=== PATIENT | male | born 1945 | race Caucasian/White ===

== ENCOUNTER 2018-04-21 18:30 | Observation (INO) ==
[2018-04-21] MEDS ORDERED: ASPIRIN 81 MG TAB.CHEW PO ONE (18:58)
[2018-04-21] MEDS ORDERED: NITROGLYCERIN 0.4 MG/TAB BTL SL ONE ×3 (19:07→22:16)
--- NOTE | 2018-04-21 19:07 | ERNOTE ---
Chest Pain/Cardiac HPI Chief Complaint: Chest Pain Time Seen by Provider: 04/21/18 18:46 Source: patient Exam Limitations: no limitations Immunizations: IMMUNIZATION HX Immunizations Up to Date Yes History of Influenza Vaccine No Hx Pneumococcal Vaccination No Allergies/Adverse Reactions: Allergies No Known Allergies Allergy (Unverified 04/21/18 18:56) Home Medications: HOME MEDICATIONS NK 04/21/18 [Last Taken Unknown] Narrative: Patient has had intermittent chest pain for at least three weeks. The pain has been intermittent at first but has been constant since he woke up this morning. He has not clearly aggravating or alleviating factors, pain radiates to both shoulders, rates it as a 8/10. He saw his PCP today who advised him to go to the ER. His prior history is positive for a bicuspid aortic valve, he takes only vitamin, no prescription medication. Timing: constant Severity/Quality: severe, pressure Location: central Chest Pain Radiation: shoulders Activities at Onset: none Modifying Factors - Improves: Present: nothing Modifying Factors - Worsens: Absent: exercise, position Nitro Today/Relief: no nitro taken today Associated Symptoms: Present: cough, shortness of breath. Absent: fever/chills, palpitations, nausea, vomiting Prior Chest Pain/Cardiac Workup: Denies: prior chest pain, heart attack Prior Treatment: Reports: recently seen. Denies: currently on antibiotics Review of Systems - Review of Systems Constitutional: Present: fatigue, malaise. Absent: recent illness, fever, chills ENT: Absent: nose congestion Respiratory: Present: shortness of breath, cough - slight Cardiology: Present: chest pain. Absent: palpitations Gastrointestinal/Abdominal: Absent: nausea, vomiting, abdominal pain Genitourinary: Present: no symptoms reported Musculoskeletal: Absent: back pain Neurological: Present: weakness - generalized Medical History (Last Reviewed 04/21/18 @ 19:41 by Lillian Espitia MD) Hx of bicuspid aortic valve Surgical History: Surgical History (Last Reviewed 04/21/18 @ 19:41 by Lillian Espitia MD) History of appendectomy History of arthroscopy of left knee History of back surgery History of shoulder surgery History of tonsillectomy and adenoidectomy Social History: Preferred Language Indonesian Do you have any yazidism or Yes: [place] cultural preference? Smoking Status Never smoker Alcohol Use none Drug Use none No Social History Section defined Physical Exam - Physical Exam General Appearance: Present: wd/wn, alert, no apparent distress Respiratory: Present: no respiratory distress, normal breath sounds, lungs clear, chest tenderness - parasternal Cardiovascular/Chest: Present: regular rate, rhythm, no murmur Gastrointestinal/Abdominal: Present: normal bowel sounds, nondistended, soft, tenderness Extremity Exam: Present: no edema Neurological Exam: Present: alert, oriented, normal mood/affect Skin Exam: Present: normal color, warm/dry Progress - Results and Orders Patient's Lab Results:: I have reviewed the patient's lab results. - Vital Signs Patient's Vital Signs:: I have reviewed the patient's vital signs. Vital Signs: Vital Signs 04/21/18 18:51 Temperature 35.5 C L Pulse Rate 85 Respiratory Rate 15 Blood Pressure 181/74 H O2 Sat by Pulse Oximetry 95 - EKG EKG #1 EKG: NSR, RBBB EKG read: Interp. by me - X-Ray X-Ray #1 X-Ray: chest - no acute changes Interpretation: Interp. by me - Progress/Reassessment Chief Complaint: Chest Pain Progress Note-Subjective: 04/21/18 19:50 pain was better after nitro 08/0804/21/18 20:10 discussed test results with patient and family, offered admission, patient agreed pain better 04/21/18 20:18 discussed with kirk Graff to admit for observation for chest pain Departure Clinical Impression: Chest pain Qualifiers: Chest pain type: unspecified Qualified Code(s): R07.9 - Chest pain, unspecified - Departure Disposition: Still a patient Condition: Stable
[2018-04-21 19:38] LABS: Hematocrit 49.8 % (42.0-52.0); Hemoglobin 16.8 gm/dL (13.5-18.0); Mean Cell Volume 88.6 fl (78-100); Mean Corpuscular Hemoglobin 29.9 pg (27-31); Mean Corpuscular Hgb Conc 33.7 g/dl (32-36); Mean Platelet Volume 10.9 fl (8-11.3); Neutrophil # 3.8 K/mm3 (1.3-6.0); Neutrophil % 56.8 % (42-75.0); Platelet Count 169 K/mm3 (150-450); Red Blood Count 5.62 M/mm3 (4.7-6.0); White Blood Count 6.7 K/mm3 (4.0-10.5)
[2018-04-21 19:45] LABS: INR 1.1 INR (0.90-1.10); Partial Thrombolplastin Time 28.5 Seconds (24-32)
[2018-04-21 19:52] LABS: ALT 24 U/L (19-67); AST 34 U/L (0-48); Albumin * 3.9 gm/dl (3.4-5.0); Alkaline Phosphatase * 82 U/L (50-170); Anion Gap 13.3 mmol/L (6.8-13.8); BUN/Creatinine Ratio 18.5 (9.0-21.6); Bilirubin, Total 0.7 mg/dL (0.0-1.1); Blood Urea Nitrogen 17 mg/dL (6-23); Ca. Corrected For Albumin 8.8 mg/dL (8.4-10.2); Carbon Dioxide 26.8 mmol/L (24-32.6); Chloride 104 mmol/L (97-106); Glucose * 99 mg/dL (70-110); Potassium 4.1 mmol/L (3.4-4.6); Sodium 140 mmol/L (132-142); Total Protein 7.1 gm/dL (6.2-8.2); Troponin I Less than 0.017 ng/mL (0.00-0.10)
[2018-04-21 20:12] LABS: Urine Bilirubin Negative (NEGATIVE); Urine Blood Negative /ul (NEGATIVE); Urine Ketone Negative (NEGATIVE); Urine Nitrite Negative (NEGATIVE); Urine Protein Negative (NEGATIVE); Urine Urobilinogen Normal (NORMAL); Urine pH 5.5 pH (5.0-7.0)
[2018-04-21 20:19] LABS: Urine Appearance Clear (CLEAR); Urine Color Yellow
[2018-04-21 20:20] LABS: Urine Bacteria TRACE; Urine RBC None Seen /hpf (0-5); Urine WBC None Seen /hpf (0-5)
[2018-04-21] MEDS ORDERED: ROSUVASTATIN CALCIUM 20 MG TABLET PO STA (20:30)
[2018-04-21] MEDS ORDERED: NITROGLYCERIN 0.4 MG/TAB BTL SL PRN (22:13)
--- NOTE | 2018-04-22 01:29 | HP ---
Chief Complaint - Chief Complaint Date of Service: 04/22/18 Time of Service: 00:53 Chief Complaint: Chest pain History of Present Illness: 72-year-old male with no real pertinent past history presented to the ER today due to 3-4 weeks of ongoing chest pain/pressure that seem to be made worse with activity. He stated the pain radiated for the center of his chest into both arm pits and sometimes down both arms. He endorsed fatigue but denies shortness of breath, dizziness, nausea vomiting. He has endorsed some swelling in his legs which he says started about the same time he started having chest pain. His first troponin in the ER was negative, EKG showed right bundle branch block and some PVCs but otherwise no ischemic or elevated changes. He was given a dose of aspirin and Crestor in the ER. Since being on the floor he has had one episode of chest pain which improved with nitro but repeat EKG showed no changes compared to his first EKG. His vital signs been stable and he has been afebrile. He was placed in observation for repeat cardiac enzyme testing later this morning Medical History (Last Reviewed 04/21/18 @ 19:41 by Lillian Espitia MD) Hx of bicuspid aortic valve Surgical History: Surgical History (Last Reviewed 04/21/18 @ 19:41 by Lillian Espitia MD) History of appendectomy History of arthroscopy of left knee History of back surgery History of shoulder surgery History of tonsillectomy and adenoidectomy Social History: Patient Lives/Resources Home Utilized Occupation retired Preferred Language Beninese Do you have any methodist or Yes: L[employer] cultural preference? Smoking Status Never smoker Have you smoked in the past 12 No months Do you dip or chew tobacco No Alcohol Use none Drug Use none No Social History Section defined Review Of Systems (GEN) - Review of Systems Generalized/Overall Review: Present: Weakness. Absent: Chills, Fever EENTM: Absent: Blurred Vision, Double Vision Respiratory: Absent: Cough, Shortness of Breath Cardiac: Present: Chest Pain, Edema. Absent: Palpitations, Syncope Abdominal: Absent: Nausea, Vomiting, Abdominal Pain Genitourinary: Present: No Symptoms Reported Musculoskeletal: Present: Joint Pain - Right shoulder, Back Pain Neurological: Absent: Headache, Anxiety, Depressed Immunizations: IMMUNIZATION HX Immunizations Up to Date Yes History of Influenza Vaccine No Hx Pneumococcal Vaccination No Allergies/Adverse Reactions: Allergies Allergy/AdvReac Type Severity Reaction Status Date / Time No Known Allergies Allergy Unverified 04/21/18 18:56 Home Medications: HOME MEDICATIONS Ascorbic Acid/Multivit-Min [Emergen-C 1,000 mg Packet] 1,000 mg PO DAILY [Last Taken Unknown] Cefdinir 600 mg PO DAILY 04/21/18 [Last Taken Unknown] Gluc/MSM/Coll2/Hyal/Antiarth#3 [Arthri-Flex Tablet] 2 ea PO QID 04/21/18 [Last Taken Unknown] Multivitamin [Multivitamins] 1 ea PO DAILY 04/21/18 [Last Taken Unknown] Nitroglycerin [Nitrostat] 0.4 mg SUBLINGUAL Q5MIN PRN 04/21/18 [Last Taken Unknown] Exam - Exam Vital Signs: Vital Signs - Last Taken Temp 36.5 C 04/21/18 23:53 Pulse 55 L 04/21/18 23:53 Resp 20 04/21/18 23:53 BP 105/55 04/21/18 23:53 Pulse Ox 94 04/21/18 23:53 Constitutional: Present: Alert, Oriented x3, Cooperative Eye Exam: bilateral eye: normal inspection, EOMI Respiratory: Present: lungs clear, normal breath sounds, no respiratory distress, other - Chest wall pain with palpation Cardiovascular/Chest: Present: normal peripheral pulses, regular rate, rhythm, no edema - Trace edema bilaterally midshin. Absent: no chest tenderness, diastolic murmur, systolic murmur Abdomen: Present: Normal bowel sounds, soft /Rectal: Present: Exam deferred Skin Exam: Present: normal color, warm/dry Appearance: Present: appropriate appearance, appropriate insight, neat Eye contact: Present: cooperative, good eye contact Thoughts: Present: normal thought pattern, normal mood /affect Diagnostic Studies: Laboratory Results WBC 6.7 K/mm3 (4.0-10.5) 04/21/18 19:15 RBC 5.62 M/mm3 (4.7-6.0) 04/21/18 19:15 Hgb 16.8 gm/dL (13.5-18.0) 04/21/18 19:15 Hct 49.8 % (42.0-52.0) 04/21/18 19:15 MCV 88.6 fl (78-100) 04/21/18 19:15 MCH 29.9 pg (27-31) 04/21/18 19:15 MCHC 33.7 g/dl (32-36) 04/21/18 19:15 RDW 13.0 % (11.5-14.0) 04/21/18 19:15 Plt Count 169 K/mm3 (150-450) 04/21/18 19:15 MPV 10.9 fl (8-11.3) 04/21/18 19:15 Immature Gran % (Auto) 0.30 % (0.001-0.429) 04/21/18 19:15 Immature Gran # (Auto) 0.02 K/mm3 (0.000-0.0310) 04/21/18 19:15 Neutrophils % 56.8 % (42-75.0) 04/21/18 19:15 Lymphocytes % 32.2 % (20-51) 04/21/18 19:15 Monocytes % 8.5 % (0.0-9) 04/21/18 19:15 Eosinophils % 1.9 % (0.0-3.0) 04/21/18 19:15 Basophils % 0.3 % (0.0-1.0) 04/21/18 19:15 Nucleated RBC % 0.0 k/mm3 (0-1) 04/21/18 19:15 Neutrophils # 3.8 K/mm3 (1.3-6.0) 04/21/18 19:15 Lymphocytes # 2.15 k/mm3 (1.5-3.5) 04/21/18 19:15 Monocytes # 0.6 k/mm3 (0.0-1.0) 04/21/18 19:15 Eosinophils # 0.1 k/mm3 (0.0-0.7) 04/21/18 19:15 Absolute Basophils 0.0 k/mm3 (0.0-0.1) 04/21/18 19:15 PT 11.0 Seconds (9.0-11.0) 04/21/18 19:15 INR (Anticoag Therapy) 1.10 INR (0.90-1.10) 04/21/18 19:15 PTT ([place]) 28.5 Seconds (24-32) 04/21/18 19:15 Sodium 140 mmol/L (132-142) 04/21/18 19:15 Plasma Sodium 140 mmol/L (130-142) 04/21/18 19:15 Potassium 4.1 mmol/L (3.4-4.6) 04/21/18 19:15 Chloride 104 mmol/L (97-106) 04/21/18 19:15 Carbon Dioxide 26.8 mmol/L (24-32.6) 04/21/18 19:15 Anion Gap 13.3 mmol/L (6.8-13.8) 04/21/18 19:15 BUN 17 mg/dL (6-23) 04/21/18 19:15 Creatinine 0.92 mg/dL (0.4-1.4) 04/21/18 19:15 Est GFR (Non-Af Amer) 86 mL/min (60-130) 04/21/18 19:15 BUN/Creatinine Ratio 18.5 (9.0-21.6) 04/21/18 19:15 Random Glucose 99 mg/dL (70-110) 04/21/18 19:15 Calcium 9.0 mg/dL (7.9-10.9) 04/21/18 19:15 Calcium Adj for Albumin 8.8 mg/dL (8.4-10.2) 04/21/18 19:15 Total Bilirubin 0.7 mg/dL (0.0-1.1) 04/21/18 19:15 AST 34 U/L (0-48) 04/21/18 19:15 ALT 24 U/L (19-67) 04/21/18 19:15 Alkaline Phosphatase 82 U/L (50-170) 04/21/18 19:15 Troponin I Less than 0.017 ng/mL (0.00-0.10) 04/21/18 19:15 Total Protein 7.1 gm/dL (6.2-8.2) 04/21/18 19:15 Albumin 3.9 gm/dl (3.4-5.0) 04/21/18 19:15 Urine Color Yellow 04/21/18 19:45 Urine Appearance Clear (CLEAR) 04/21/18 19:45 Urine pH 5.5 pH (5.0-7.0) 04/21/18 19:45 Ur Specific [place] 1.020 SP.GR. (1.005-1.030) 04/21/18 19:45 Urine Protein Negative mg/dL (NEGATIVE) 04/21/18 19:45 Urine Glucose (UA) Negative mg/dL (NEGATIVE) 04/21/18 19:45 Urine Ketones Negative mg/dL (NEGATIVE) 04/21/18 19:45 Urine Blood Negative /ul (NEGATIVE) 04/21/18 19:45 Urine Nitrate Negative (NEGATIVE) 04/21/18 19:45 Urine Bilirubin Negative mg/dl (NEGATIVE) 04/21/18 19:45 Urine Urobilinogen Normal EU/dl (NORMAL) 04/21/18 19:45 Ur Leukocyte Esterase Negative /ul (NEGATIVE) 04/21/18 19:45 Urine RBC None seen /hpf (0-5) 04/21/18 19:45 Urine WBC None seen /hpf (0-5) 04/21/18 19:45 Ur Epithelial Cells 0-5 /hpf (0-5) 04/21/18 19:45 Urine Bacteria Trace (NONE) 04/21/18:45 Urine Culture Comments No culture indicated 04/21/18 19:45 Assessment/Plan - Narrative Narrative: We will continue cardiac workup though the patient will likely be able to be discharged in the morning if his next cardiac enzymes are negative for an outpatient echocardiogram. Patient given aspirin and Crestor in the ER. Unsure as to why the patient did not receive a beta-karri or DAVID inhibitor in the ER or why he did not receive a dose of Lovenox but the patient at this time does not want these medications. We will discuss this in the morning, will start these medications if any of his workup is positive for cardiac disease. Also holding Lovenox at this time for the same reason. - Assessment/Plan (1) Right bundle branch block Problem: Acute (2) Chest pain Problem: Acute Qualifiers: Chest pain type: unspecified Qualified Code(s): R07.9 - Chest pain, unspecified
--- NOTE | 2018-04-22 12:13 | DS ---
(1) Right bundle branch block Problem: Acute (2) Chest pain Problem: Acute Qualifiers: Chest pain type: unspecified Qualified Code(s): R07.9 - Chest pain, unspecified Description of Stay: 72-year-old patient brought in for roughly 3-4 weeks of chest pain. His workup overnight ruled out acute cardiac disease as he had negative troponins, negative changes in his EKG, negative BMP. His pain was reproducible with palpation and is most likely musculoskeletal in nature. His vital signs were within normal limits and he was afebrile. If his chest pain continues to be an issue and is concerned for cardiac disease, outpatient echo is a reasonable option for him. Advise a follow-up with his PCP in the next week to discuss his musculoskeletal pain. 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 He was sent home in stable condition, started on meloxicam to be taken as directed for 1 month. Instructed to return to the hospital or make appointment to see me in the clinic if needed which he agrees to do. Procedures Performed: none Results and Findings: Lab Pending Results 04/21/18 19:15: WBC 6.7, RBC 5.62, Hgb 16.8, Hct 49.8, MCV 88.6, MCH 29.9, MCHC 33.7, RDW 13.0, Plt Count 169, MPV 10.9, Immature Gran % (Auto) 0.30, Immature Gran # (Auto) 0.02, Neutrophils % 56.8, Lymphocytes % 32.2, Monocytes % 8.5, Eosinophils % 1.9, Basophils % 0.3, Nucleated RBC % 0.0, Neutrophils # 3.8, Lymphocytes # 2.15, Monocytes # 0.6, Eosinophils # 0.1, Absolute Basophils 0.0 04/21/18 19:15: PT 11.0, INR (Anticoag Therapy) 1.10, PTT ([place]) 28.5 04/21/18 19:15: Sodium 140, Plasma Sodium 140, Potassium 4.1, Chloride 104, Carbon Dioxide 26.8, Anion Gap 13.3, BUN 17, Creatinine 0.92, Est GFR (Non-Af Amer) 86, BUN/Creatinine Ratio 18.5, Random Glucose 99, Calcium 9.0, Calcium Adj for Albumin 8.8, Total Bilirubin 0.7, AST 34, ALT 24, Alkaline Phosphatase 82, Troponin I Less than 0.017, Total Protein 7.1, Albumin 3.9 04/21/18 19:45: Urine Color Yellow, Urine Appearance Clear, Urine pH 5.5, Ur Specific [place] 1.020, Urine Protein Negative, Urine Glucose (UA) Negative, Urine Ketones Negative, Urine Blood Negative, Urine Nitrate Negative, Urine Bilirubin Negative, Urine Urobilinogen Normal, Ur Leukocyte Esterase Negative, Urine RBC None seen, Urine WBC None seen, Ur Epithelial Cells 0-5, Urine Bacteria Trace, Urine Culture Comments No culture indicated 04/22/18 02:30: Troponin I Less than 0.017 04/22/18 07:27: Troponin I Less than 0.017 04/22/18 07:27: B-Natriuretic Peptide 129 Discharge Location: Home Disposition: Home self-care Condition: Stable Discharge Activity: Activity as tolerated Discharge Diet: General/regular food Referrals: Tosin Reddy DO [Primary Care Provider] - Additional Patient Instructions (free text): -Please make TCM appointment unless long term discharge. Thank you! Joanna @ [phone]. Prescriptions (Any new or edited meds): Meloxicam [Mobic] 15 mg PO DAILY #30 tab Complete Home Medications List: Complete Home Medication List: Ascorbic Acid/Multivit-Min [Emergen-C 1,000 mg Packet] 1,000 mg PO DAILY 04/21/18 Cefdinir 600 mg PO DAILY 04/21/18 Nitroglycerin [Nitrostat] 0.4 mg SUBLINGUAL Q5MIN PRN 04/21/18 Meloxicam [Mobic] 15 mg PO DAILY #30 tab 04/22/18 Vitamist Arthriflex 1 spray PO DAILY 04/22/18 Vitamist Osteo-Magcal 1 spray PO DAILY 04/22/18
[2018-04-22 13:42] VITALS: BP 131/71
[2018-04-23] MEDS ORDERED: ASPIRIN 325 MG TABLET.DR PO SCH (01:30)
== END 2018-04-22 13:25 | disposition home or self-care (01) ==
LOC: ER 18:30 → MS 18:30
PROVIDERS: ADMIT Family Medicine; ATTEND Family Medicine
CPT/HCPCS: 36415; 71020; 71046; 80053; 81001; 83519; 83880; 84484; 85025; 85610; 85730; 93005; 99285; G0378